=== PATIENT | female | born 1995 | race Caucasian/White ===

== ENCOUNTER 2024-11-08 22:38 | Emergency (ER) | payer OTHER, SELFPAY ==
[2024-11-08 22:45] VITALS: BP 135/71
[2024-11-09 02:30] VITALS: BP 97/49
[2024-11-09 02:36] VITALS: BMI 34.1
--- NOTE | 2024-11-09 04:42 | ED.GENMED ---
History of Present Illness
General
Chief Complaint: Headache
Source: patient and family
Exam Limitations: none
Time Seen by Provider: 11/09/24 04:25
Nursing documentation reviewed up to this point in time: agreed with
History of Present Illness
History of Present Illness:
Pleasant 29-year-old female presents to the emergency department with 2 weeks of headache, dizziness, and ringing in her right ear. Patient was seen in urgent care 2 weeks ago and started on a Z-Anatoly. Then again went back to urgent care for repeat
treatment. Patient has a follow-up appointment with ENT next week. Patient denies any other symptoms. Denies fever, chills, nausea or vomiting. Patient is a smoker but states that she has been cutting back and trying to quit. Denies any head
trauma. She does have iron deficiency anemia which is followed by her PCP.
Past History
Past History
ED Past Medical History: None
ED Past Surgical History: Bowel resection (Gastric sleeve), Tonsilectomy and Other (Bilateral myringotomy tubes)
Social History
Tobacco: Non-smoker
Alcohol: None
Drug: None
Personal: Single
Living: with family
Employment: Not employed
Family History
Family History: Other (Noncontributory)
Review of Systems
Review of Systems
Allergies reviewed?: Yes
All Other Systems: ROS reviewed and negative except as documented in HPI and ROS
EENT: Reports other (Right ear pain)
Psychiatric: Reports anxiety
Phy Exam
Physical Exam
Physical Exam:
Physical Exam
Vital signs and allergy list reviewed and agreed with.
GENERAL: Alert , in minimal to no apparent distress
EYE: pupils equal, EOMI, anicteric
NECK: Supple, no significant adenopathy. No masses. Trachea midline
ENT: Oropharynx is clear, mmm. Swelling in the right ear.
CARDIAC: Regular rate and rhythm . No M/R/G
LUNGS: Clear breath sounds bilaterally, no acute respiratory distress, no wheezes/rales/rhonchi
ABDOMEN: Soft, without focal tenderness, no r/g, no cvat. Normal BSx4q
NEUROLOGICAL: Alert and oriented, no focal neuro deficits
SKIN: Warm and dry, skin intact.
MUSCULOSKELETAL: No edema, well perfused. Moves all 4 extremities
PSYCH: Normal and appropriate interaction.
ENT Exam
ENT Exam: pharynx normal, neck supple, normocephalic, swallowing well and TM's abnormal (Right tympanic membrane has 2 holes from tympanostomy tubes. There is some slight swelling when compared with left.)
Neurological Exam
Neurological Exam: alert and oriented x3
Musculoskeletal Exam
Musculoskeletal Exam: full ROM
Skin Exam
Skin Exam: normal color
Psychiatric Exam
Psychiatric Exam: normal mood/affect and anxious
Course
Orders/Labs/Results
Orders:
Orders
11/09/24 04:41
Dexamethasone Pf [Decadron] 10 mg PO NOW STA
Vital Signs
Initial and Last Documented VS:
Initial Vital Signs
Temp Pulse Resp BP Pulse Ox
97.8 F 66 16 135/71 100
11/08/24 22:45 11/08/24 22:45 11/08/24 22:45 11/08/24 22:45 11/08/24 22:45
Last Documented Vital Signs
Temp Pulse Resp BP Pulse Ox
98.0 F 69 20 97/49 100
11/09/24 02:30 11/09/24 02:30 11/09/24 02:30 11/09/24 02:30 11/09/24 02:30
*Pulse Oximetry
Patient hypoxic: no
*Critical Care Note
Total Time (30-74mins, 75-104mins- exclusive of procedures): Not Applicable
ED Attending Note
-
Portions of this chart may have been created with voice recognition software.� Occasional wrong word or��sound alike� substitutions may have occurred due to the inherent limitations of voice recognition software.
Discharge Plan
Departure
Patient Disposition: Home (Routine Discharge)
Date of Disposition: 11/09/24
Time of Disposition: 04:47
Patient with high blood pressure during this ER visit?: No
Discharge Problem:
Pain in right ear
Instructions: Ear pain - ED discharge instructions, Dizziness
Prescriptions:
No Action
loratadine 10 MG tablet
10 mg PO DAILY
PNV cmb#95-ferrous fumarate-FA [] 1 EACH tablet
1 ea PO Daily
ibuprofen 600 MG tablet
600 mg PO Q4HPRN PRN (Reason: moderate pain/cramps) 0RF
Referrals:
Lisa Wakefield MD [Family Provider] -
Stand Alone Forms: Return to Work
Activity Restrictions/Additional Instructions:
It was a pleasure meeting you and taking part in your care. We hope for your continued healing and wellness.
Please read discharge instructions in their entirety. However, they are for general education and may not describe your exact diagnosis at discharge. Information on your ER visit and medical conditions were discussed with you along with appropriate
follow up information...
If indicated, please take your medications as instructed and indicated on discharge paperwork.
Please schedule a follow up appointment as directed. Call to schedule an appointment
Please return to the emergency department with ANY change in, persisting, or worsening of symptoms. If any of your symptoms do not improve, or persist, or become more severe within 6-12 hours, please return to the emergency department for further
care.
Please return to the emergency department if you develop a headache, neck pain/stiffness, fever greater than 100.4F, chest pain, shortness of breath, persistent nausea, vomiting, slurred speech, difficulty walking, numbness/tingling, weakness, signs
of infection or any other symptoms that are worrisome to you.
If you have any questions or concerns please do not hesitate to call the Hospital at or E-mail me directly at [email or web address]
Interventions
Interventions:
*Risk Screen - Suicide Last Done: 11/08/24 22:45
*General Assessment Last Done: 11/08/24 22:45
*Neglect/Abuse Screening Last Done: 11/08/24 22:45
*ED- Fall Risk Assessment Last Done: 11/09/24 02:33
*ED COVID-19 Vaccine History Last Done: 11/08/24 22:45
*Nursing Disposition Last Done: 11/09/24 04:54
ED- Neurological Assessment Last Done: 11/09/24 02:33
ED Swallowing Screen Last Done: 11/09/24 02:35
Discharge Date and Time
Discharge Date/Time: 11/09/24 04:54
Print Language: SAMOAN
[2024-11-09] MEDS: DECADRON 10 MG PO (04:45)
== END 2024-11-09 04:54 | disposition home or self-care (01) ==
LOC: EMR 22:38
PROVIDERS: EMERGENCY PHYSICIAN Student in an Organized Health Care Education/Training Program; FAMILY PHYSICIAN Family Medicine
DX: H92.01 Otalgia, right ear (principal); D50.9 Iron deficiency anemia, unspecified
CPT/HCPCS: 99282